=== PATIENT | female | born 1985 | race Asian ===

== ENCOUNTER 2018-04-29 14:38 | Inpatient (IN) | payer OTHER ==
[2018-04-29 14:42] VITALS: BMI 24.9
[2018-04-29] MEDS ORDERED: SODIUM CHLORIDE 1,000 ML IV STA (14:45)
--- NOTE | 2018-04-29 14:45 | PDOC ---
History of Present Illness - General Chief Complaint: Pain Stated Complaint: ABD PAIN Time Seen by Provider: 04/29/18 14:41 History Source: Patient Exam Limitations: No Limitations - History of Present Illness Initial Comments: 04/29/18 15:35 Ahira 32 YOF with h/o scoliosis presenting with progressively worsening epigastric burning pain radiating to back intermittently x 3 days, worse with eating. No other food sick contacts or precipitating food factors. Has been eating [place] food, and rice/beans. +hot urine, but no dysuria frequency or urgency. +NBNB emesis with the food, clear mucus; nonbloody loose stools. No history of EGD. no meds taken. No travel history; no tobacco or ETOH or drug use. No VB, or discharge. LMP ~1 week ago with vaginal spotting, but Uses nexplanon for control so typically irregular periods. Denies no increased NSAID or tylenol use. does take OTC paracematol occasionally x 2 days, 2 tablets for her pain, but no overdose or increased dosage. 04/29/18 17:53 Past History - Past Medical History Allergies/Adverse Reactions: Allergies Allergy/AdvReac Type Severity Reaction Status Date / Time Penicillins Allergy Verified 04/29/18 14:39 Home Medications: Ambulatory Orders Etonogestrel [Nexplanon] 68 mg SQ ASDIR 04/29/18 COPD: No Other medical history: DENIES - Suicide/Smoking/Psychosocial Hx Smoking History: Never smoked Have you smoked in the past 12 months: No Hx Alcohol Use: No Drug/Substance Use Hx: No Review of Systems - Review of Systems Able to Perform ROS?: Yes Comments:: 04/29/18 15:55 GENERAL/CONSTITUTIONAL: No fever. No weakness. + chills, sweats. HEAD, EYES, EARS, NOSE AND THROAT: No sore throat or mouth pain. No difficulty swallowing.. No congestion. CARDIOVASCULAR: No chest pain or palpitations, syncope or edema. RESPIRATORY: No SOB, cough, wheezing, or hemoptysis. GASTROINTESTINAL + abdominal pain, nausea/vomiting. No diarrhea or constipation. No bloody stools. GENITOURINARY: No hematuria, dysuria, frequency, urgency or other changes. no VB or discharge. MUSCULOSKELETAL: No joint or muscle swelling or pain. +back pain. SKIN: No rash or changes in skin color or lesions. NEUROLOGIC: No headache, vertigo, loss of consciousness, or change in strength/ sensation. No gait instability. HEMATOLOGIC/LYMPHATIC: No anemia, easy bruising/bleeding, or history of blood clots. ALLERGIC/IMMUNOLOGIC: No allergies All other systems reviewed and negative, or as documented in HPI. *Physical Exam - Vital Signs Last Vital Signs Temp Pulse Resp BP Pulse Ox 98.5 F 76 18 110/61 100 04/29/18 14:38 04/29/18 14:38 04/29/18 14:38 04/29/18 14:38 04/29/18 14:38 - Physical Exam Comments: 04/29/18 15:56 General: Well appearing, awake and alert, NAD. HEENT: NCAT, PERRL, EOMI, clear conjunctiva, anicteric, moist mucus membranes, clear oropharynx, no oral lesions.. Neck: neck supple, FROM Resp: CTAB, normal and even respirations, no respiratory distress CVS: RRR, no murmurs, 2+ peripheral pulses throughout, no peripheral edema Abdomen: soft, +epigastric tenderness, no negrete's sign. no rebound or guarding. no CVAT. Back: nontender, normal inspection and ROM MSK: no edema, ASHER x4, ROM intact. No clubbing or cyanosis. normal bulk and tone. Neuro: alert, oriented appropriately Skin: warm and well perfused, cap refill <2 sec, normal color, no jaundice. 04/29/18 17:52 ED Treatment Course - LABORATORY CBC & Chemistry Diagram: 04/29/18 16:00 04/29/18 16:00 Medical Decision Making - Medical Decision Making 04/29/18 16:04 32 YOF presenting with epigastric burning pain, n/v, loose stools x 3 days, worse with food. vitals wnl, no fever. DDx abdominal pain: GERD, PUD, esophageal spasm, pancreatitis, hepatitis, biliary obstruction, biliary colic, gallstones, choledocholithiasis, cholecystitis. constipation, colitis, gastroenteritis, cholecystitis, UTI, pyelonephritis, given pepcid, IVF, zofran, maalox PO with clinical improvement. abdomen soft and benign, +epigastric tenderness labs and lytes, LFTs elevated in 700-800s, indicating infectious vs inflammatory liver disease. coags with INR mildly elevated. hepatitis panel sent, pending results. UA neg for infection or ketones, neg preg test. RUQ/abdomen US to r/o biliary etiology/obstruction. +CBD dilation 0.7cm, no definitive stones or cholecystitis. overdistended gallbladder present. warrants MRCP/MRI abdomen as inpatient GI consultation at [facility] to Dr. Maldonado, GI consultation for transaminitis. dispo: admit for transaminitis, Abdominal pain - results above d/w patient. agree with impression and plan. no primary doctor, admit to Dr. Rizo, hospitalist. 04/29/18 18:52 *DC/Admit/Observation/Transfer Diagnosis at time of Disposition: Transaminitis, Abdominal pain - Discharge Dispostion Condition at time of disposition: Stable Decision to Admit order: Yes Decision to Admit order Date/Time: 04/29/18 17:36 Decision to Admit Order Category Date Time Status Decision to Admit to Hospital Routine Admission 04/29/18 17:35 Ordered - Referrals - Patient Instructions - Post Discharge Activity
[2018-04-29 15:20] LABS: PH,URINE 7.5 (4.5-8); URINE APPEARANCE Clear; URINE BILIRUBIN 2+ (NEGATIVE); URINE COLOR Yellow; URINE GLUCOSE (UA) Negative (NEGATIVE); URINE KETONE Trace (NEGATIVE); URINE LEUK ESTERASE Negative (NEGATIVE); URINE NITRITE Negative (NEGATIVE); URINE PROTEIN Trace (NEGATIVE)
[2018-04-29] MEDS ORDERED: ONDANSETRON 4 MG/2 ML VIAL IVPUSH ONE ×2 (15:28→18:49)
[2018-04-29] MEDS ORDERED: MAG HYDROX/AL HYDROX/SIMETH 30 ML UNIT-DOSE CUP PO ONE (15:28)
[2018-04-29] MEDS ORDERED: ACETAMINOPHEN 1000 MG/100 ML VIAL (NON FORMULARY) IVPB ONE (15:28)
[2018-04-29] MEDS ORDERED: FAMOTIDINE 20 MG/50 ML IVPB 20 MG/50 ML MG IVPB ONE ×2 (15:29→15:33)
[2018-04-29] MEDS ORDERED: MAG HYDROX/AL HYDROX/SIMETH 30 ML UNIT-DOSE CUP ONE (15:33)
[2018-04-29] MEDS ORDERED: ONDANSETRON 4 MG/2 ML VIAL ONE (15:34)
[2018-04-29] MEDS ORDERED: ACETAMINOPHEN INJECTION 100 ML IVPB ONE (15:34)
[2018-04-29 16:36] LABS: ALBUMIN 4.2 g/dl (3.5-5.0); ALK PHOS 211 U/L (32-92); ANION GAP 12 MMOL/L (8-16); BASO % 0.7 % (0-2.0); BILIRUBIN,TOTAL 2.7 mg/dl (0.2-1.0); BLOOD UREA NITROGEN 7 mg/dl (7-18); CALCIUM 9.1 mg/dl (8.4-10.2); CHLORIDE 104 mmol/L (98-107); CO2 22 mmol/L (22-28); CREATININE 0.6 mg/dl (0.6-1.3); EOS % 0.4 % (0-4.5); GLUCOSE,RANDOM 99 mg/dl (74-106); HEMATOCRIT 40.8 % (32.4-45.2); HEMOGLOBIN 13.5 GM/dl (10.7-15.3); MCH 29.3 pg (25.7-33.7); MCHC 33.1 g/dl (32.0-36.0); MEAN CELL VOLUME 88.6 fl (80-96); MEAN PLT VOLUME 9.9 fl (7.5-11.1); MONO % 4.9 % (3.8-10.2); PLATELET COUNT 215 K/MM3 (134-434); POTASSIUM 4.2 mmol/L (3.5-5.1); RDW 12.1 % (11.6-15.6); SODIUM 138 mmol/L (136-145); TOT PROT 7.6 g/dl (6.4-8.3); WHITE BLOOD COUNT 4.5 K/mm3 (4.0-10.8)
[2018-04-29 17:06] LABS: SGOT/AST 735 U/L (10-42); SGPT/ALT 895 U/L (10-40)
[2018-04-29 18:06] LABS: LIPASE 169 U/L (73-393)
[2018-04-29 18:44] LABS: INR 1.24 (0.82-1.09); PROTHROMBIN TIME (PATIENT) 13.8 SEC (10.2-13.0)
--- NOTE | 2018-04-29 20:07 | HP ---
Admitting History and Physical - Primary Care Physician PCP: Pam Rizo - Admission History of Present Illness: Ahira 32 YOF with h/o scoliosis presenting with progressively worsening epigastric burning pain radiating to back intermittently x 3 days, worse with eating. No other food sick contacts or precipitating food factors. Has been eating citizen of [place] food, and rice/beans. +hot urine, but no dysuria frequency or urgency. +NBNB emesis with the food, clear mucus; nonbloody loose stools. No history of EGD. no meds taken. No travel history; no tobacco or ETOH or drug use. No VB, or discharge. LMP ~1 week ago with vaginal spotting, but Uses nexplanon for control so typically irregular periods. Denies no increased NSAID or tylenol use. does take OTC paracematol occasionally x 2 days, 2 tablets for her pain, but no overdose or increased dosage. - Past Medical History ...LMP: 04/22/18 ...: No - Smoking History Smoking history: Never smoked Have you smoked in the past 12 months: No - Alcohol/Substance Use Hx Alcohol Use: No Home Medications - Allergies Allergies/Adverse Reactions: Allergies Allergy/AdvReac Type Severity Reaction Status Date / Time Penicillins Allergy Verified 04/29/18 14:39 - Home Medications Home Medications: Ambulatory Orders Etonogestrel [Nexplanon] 68 mg SQ ASDIR 04/29/18 Physical Examination Vital Signs: Vital Signs Temperature 99.9 F H 04/29/18 19:20 Pulse Rate 76 04/29/18 19:20 Respiratory Rate 20 04/29/18 19:20 Blood Pressure 110/62 04/29/18 19:20 O2 Sat by Pulse Oximetry (%) 100 04/29/18 14:38 Constitutional: Yes: No Distress HENT: Yes: Atraumatic Neck: Yes: Supple Cardiovascular: Yes: Regular Rate and Rhythm Respiratory: Yes: CTA Bilaterally Gastrointestinal: Yes: Normal Bowel Sounds, Tenderness (epigastric) Extremities: Yes: WNL Neurological: Yes: Alert, Oriented Labs: CBC, BMP 04/29/18 16:00 04/29/18 16:00 Problem List - Problems (1) Abdominal pain Code(s): R10.9 - UNSPECIFIED ABDOMINAL PAIN (2) Transaminitis Assessment/Plan: NPO, IVF FU LABS Code(s): R74.0 - NONSPEC ELEV OF LEVELS OF TRANSAMNS & LACTIC ACID DEHYDRGNSE (3) Acute cholecystitis Assessment/Plan: HIDA ERCP GI/SURGERY CONSULT NPO IVF Code(s): K81.0 - ACUTE CHOLECYSTITIS Assessment/Plan Laboratory Tests 04/29/18 04/29/18 04/29/18 15:00 15:00 16:00 WBC 4.5 RBC 4.60 Hgb 13.5 Hct 40.8 MCV 88.6 MCH 29.3 MCHC 33.1 RDW 12.1 Plt Count 215 MPV 9.9 Absolute Neuts (auto) 2.9 Neutrophils % 64.0 Lymphocytes % 30.0 Monocytes % 4.9 Eosinophils % 0.4 Basophils % 0.7 PT with INR INR Sodium Potassium Chloride Carbon Dioxide Anion Gap BUN Creatinine Creat Clearance w eGFR Random Glucose Calcium Total Bilirubin AST ALT Alkaline Phosphatase Total Protein Albumin Lipase Urine Color Yellow Urine Appearance Clear Urine pH 7.5 Ur Specific [place] 1.020 Urine Protein Trace Urine Glucose (UA) Negative Urine Ketones Trace Urine Blood Negative Urine Nitrite Negative Urine Bilirubin 2+ H Urine Urobilinogen 1.0 Ur Leukocyte Esterase Negative Urine HCG, Qual Negative Acetaminophen 04/29/18 04/29/18 04/29/18 16:00 18:15 18:15 WBC RBC Hgb Hct MCV MCH MCHC RDW Plt Count MPV Absolute Neuts (auto) Neutrophils % Lymphocytes % Monocytes % Eosinophils % Basophils % PT with INR 13.8 H INR 1.24 H Sodium 138 Potassium 4.2 Chloride 104 Carbon Dioxide 22 Anion Gap 12 BUN 7 Creatinine 0.6 Creat Clearance w eGFR > 60 Random Glucose 99 Calcium 9.1 Total Bilirubin 2.7 H AST 735 H ALT 895 H Alkaline Phosphatase 211 H Total Protein 7.6 Albumin 4.2 Lipase 169 Urine Color Urine Appearance Urine pH Ur Specific [place] Urine Protein Urine Glucose (UA) Urine Ketones Urine Blood Urine Nitrite Urine Bilirubin Urine Urobilinogen Ur Leukocyte Esterase Urine HCG, Qual Acetaminophen Cancelled Active Medications Generic Name Dose Route Start Last Admin Trade Name Freq PRN Reason Stop Dose Admin Hydromorphone HCl 1 mg 04/29/18 23:08 Dilaudid Injection - IVPB Q3H PRN PAIN Sodium Chloride 1,000 mls @ 75 mls/hr 04/29/18 20:30 04/29/18 23:02 Normal Saline - IV 75 mls/hr ASDIR ANITA Administration Ondansetron HCl 4 mg 04/29/18 23:07 Zofran Injection IVPB Q4H PRN NAUSEA AND/OR VOMITING
[2018-04-29] MEDS ORDERED: SODIUM CHLORIDE 1,000 ML IV SCH (20:30)
[2018-04-29] MEDS ORDERED: ONDANSETRON 4 MG/2 ML VIAL IVPB PRN (23:07)
[2018-04-29] MEDS ORDERED: HYDROmorphone HCL CARPU-JECT 1 MG/1 ML DISP.SYRIN IVPB PRN (23:08)
--- NOTE | 2018-04-30 08:18 | PN ---
Progress Note (short form) - Note Progress Note: surgery chart review. 32f with epigastric pain, markedly elevated lfts and dilated cbd on u/s Needs gi eval for ercp.
[2018-04-30 08:57] LABS: ALBUMIN 3.1 g/dl (3.5-5.0); ALK PHOS 165 U/L (32-92); ANION GAP 7 MMOL/L (8-16); BILIRUBIN,TOTAL 1.3 mg/dl (0.2-1.0); BLOOD UREA NITROGEN 7 mg/dl (7-18); CALCIUM 8.2 mg/dl (8.4-10.2); CHLORIDE 109 mmol/L (98-107); CO2 22 mmol/L (22-28); CREATININE 0.7 mg/dl (0.6-1.3); GLUCOSE,RANDOM 90 mg/dl (74-106); POTASSIUM 4.2 mmol/L (3.5-5.1); SGOT/AST 289 U/L (10-42); SODIUM 138 mmol/L (136-145); TOT PROT 5.8 g/dl (6.4-8.3)
[2018-04-30 09:24] LABS: BASO % 0.6 % (0-2.0); EOS % 2.2 % (0-4.5); HEMATOCRIT 32.9 % (32.4-45.2); HEMOGLOBIN 11.2 GM/dl (10.7-15.3); MEAN CELL VOLUME 88.2 fl (80-96); MEAN PLT VOLUME 10.7 fl (7.5-11.1); MONO % 6.7 % (3.8-10.2); NEUT % 40.5 % (42.8-82.8); PLATELET COUNT 133 K/MM3 (134-434); RBC 3.73 M/mm3 (3.60-5.2); RDW 11.6 % (11.6-15.6); WHITE BLOOD COUNT 4.4 K/mm3 (4.0-10.8)
[2018-04-30 09:28] LABS: SGPT/ALT 372 U/L (10-40)
--- NOTE | 2018-04-30 15:49 | CONS ---
DATE OF CONSULTATION: 04/30/2018 REASON FOR CONSULTATION: Abnormal liver function tests, abdominal pain. REQUESTING PHYSICIAN: The medical doctor. The patient is seen and examined on the inpatient service at [facility]. BRIEF HISTORY: This is a 32-year-old female without significant past medical history, who presents with 1 day of severe epigastric pain radiating to her back, that has since resolved. She states in the past she has had trouble eating fatty foods. She was noted to have markedly elevated liver function tests and a dilated common bile duct at 6 mm for her age but no obvious gallstones seen. She was admitted to [facility]. She was not on antibiotic, and she was subsequently sent for a HIDA scan by the medical team, which was negative. Repeat blood tests showed marked improvement of her liver function tests, nearly coming down in half since her symptoms have resolved. PAST MEDICAL HISTORY: Only significant for scoliosis. PAST SURGICAL HISTORY: Nil. SOCIAL HISTORY: Negative for alcohol. Negative for tobacco. She takes control patch. ALLERGIES: She has allergies to PENICILLIN. FAMILY HISTORY: Negative for biliary disease. REVIEW OF SYSTEMS: General: Denies fatigue or malaise. Cardiac: Denies chest pain or palpitations. Respiratory: No shortness of breath or wheeze. Gastrointestinal: As in HPI. Denies diarrhea. Denies blood in her stool. Denies dark-colored urine. Genitourinary: Denies dysuria. Musculoskeletal: Denies joint pain, joint swelling. Psychiatric: Denies anxiety, depression, or hearing voices. PHYSICAL EXAMINATION: General: This is a well-developed, well-nourished, 32-year-old female in no distress. Vital Signs: She is afebrile. Her vital signs are stable. 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 HEENT: Her head is normocephalic. Her sclerae are anicteric. Neck: Supple. Chest: Clear. Abdomen: Soft, nontender. No surgical scars. Extremities: No edema. LABORATORY DATA: On review of her laboratory, her bilirubin was elevated at 2.7 on admission. It is 1.3 today. Her AST was 735 on admission. It is 289 today. Her ALT was 895 on admission. It is 372 today. Her alkaline phosphatase was 211 on admission. It is 165 today. Her lipase is normal. Her amylase is normal. IMAGING: Review of her imaging is as stated in HPI. ASSESSMENT: This is a 32-year-old female who presents with sudden onset of epigastric pain, markedly elevated liver function tests, ultrasound showing a dilated common bile duct, negative HIDA scan. Clinically, this is choledocholithiasis with possible passed stone. It is unusual not to see stones in the gallbladder; that is likely a failure of the ultrasound that it was missed. In either event, patient would benefit at some point from cholecystectomy this admission prior to discharge once her common bile duct has been shown to be clear of stones. This can either be done through ERCP, MRCP, or rapid continued improvement in her liver function tests. She needs a gastroenterology evaluation to determine the best course of evaluating the common bile duct. Tentatively, I will make plans for possible cholecystectomy on May 02. Patient is currently non-toxic, and with a normal white blood cell count, I see no reason to give antibiotics. You could consider prophylaxis against cholangitis, but she has given no indication of current obstruction especially with the HIDA scan showing contrast flowing into her duodenum and her white count is normal without fever. Risks and benefits of surgery were explained to the patient and her in detail. These are including, but not limited to, the possibility of conversion to open, possibility of common bile duct injury, possibility of cystic duct stump leak, possibility of injury to viscera, possibility of blood loss requiring blood transfusion, possibility of future obstruction, possibility of future hernia, plus a multitude of medical risks including, but not limited to, cardiac, neurologic, pulmonary, and vascular complications, even . Patient understands these risks and is agreeable to surgery. DO STEPHEN CARPIO/[id number]
--- NOTE | 2018-04-30 16:54 | PN ---
Progress Note (short form) - Note Progress Note: Patient seen and consult dictated. 32 yo female with acute onset of abdominal pain x 3 days and admission with elevated LFTs. Sonogram does not show gallstones or dilated CBD and HIDA negative. LFTs improving and patient also clinically better. (also normal lipase) Most likely passed CBD stone but no confirmation of either stones or sludge on imaging studies. Doubt acute viral illness with elevated LFTs and GI symptoms. In view of improving LFTs, would suggest MRCP to evaluate further. No need for ERCP at present. Repeat LFTs in am and can begin on low fat diet as tolerated. Patient/ leaning towards GB surgery but want further info/confirmatory testing as above.
--- NOTE | 2018-04-30 17:18 | PN ---
Progress Note, Physician - Current Medication List Current Medications: Active Medications Hydromorphone HCl (Dilaudid Injection -) 1 mg IVPB Q3H PRN PRN Reason: PAIN Sodium Chloride (Normal Saline -) 1,000 mls @ 75 mls/hr IV ASDIR [facility] Last Admin: 04/29/18 23:02 Dose: 75 mls/hr Ondansetron HCl (Zofran Injection) 4 mg IVPB Q4H PRN PRN Reason: NAUSEA AND/OR VOMITING - Objective Vital Signs: Vital Signs Temperature 98.9 F 04/30/18 14:00 Pulse Rate 50 L 04/30/18 14:00 Respiratory Rate 16 04/30/18 14:00 Blood Pressure 105/52 04/30/18 14:00 O2 Sat by Pulse Oximetry (%) 99 04/30/18 14:00 HENT: Yes: Atraumatic Neck: Yes: Supple Cardiovascular: Yes: Regular Rate and Rhythm Respiratory: Yes: CTA Bilaterally Gastrointestinal: Yes: Normal Bowel Sounds Extremities: Yes: WNL Neurological: Yes: Alert, Oriented Labs: CBC, BMP 04/30/18 08:20 04/30/18 08:20 INR, PTT INR 1.24 (0.82-1.09) H 04/29/18 18:15 Problem List - Problems (1) Abdominal pain Code(s): R10.9 - UNSPECIFIED ABDOMINAL PAIN (2) Transaminitis Assessment/Plan: NPO, IVF FU LABS Code(s): R74.0 - NONSPEC ELEV OF LEVELS OF TRANSAMNS & LACTIC ACID DEHYDRGNSE (3) Acute cholecystitis Assessment/Plan: HIDA ERCP GI/SURGERY CONSULT NPO IVF Code(s): K81.0 - ACUTE CHOLECYSTITIS
[2018-05-01 06:29] VITALS: BP 117/70
--- NOTE | 2018-05-01 07:41 | CONS ---
DATE OF CONSULTATION: 04/30/2018 REQUESTING PHYSICIAN: Pam Rizo MD REASON FOR CONSULTATION: I was asked to evaluate this 32-year-old female admitted with abdominal pain for several days and abnormal liver chemistries. HISTORY OF PRESENT ILLNESS: The patient has been a generally healthy female with the acute onset of abdominal pain for 3 days prior to admission. The patient was admitted with levels of AST 735 and ALT 895 with an alkaline phosphatase of 211 and a bilirubin of 2.7. Repeat lab test today included a bilirubin of 1.3, AST of 289, ALT of 372, and alkaline phosphatase of 165. The patient has no prior history of hepatobiliary disease, jaundice, or hepatitis. She was well prior to the current illness. The patient did have an ultrasound of the abdomen on admission on which the gallbladder showed some mild to moderate nonspecific distension, but no obvious gallbladder wall thickening, pericholecystic fluid accumulation or gallbladder calculi. A HIDA scan was done, as well, which showed filling of the gallbladder excluding a cystic duct obstruction, and trace was seen in the small bowel of 10 to 15 minutes consistent with the lack of common bile duct obstruction. The patient currently feels well without abdominal pain. She is asking to eat. Her vital signs are stable with a temperature of 98.9. Her white count is 4.4 with a hemoglobin 11.2 and hematocrit of 32.9. PHYSICAL EXAMINATION: General: She is a well-developed, well-nourished female. Abdomen: Soft, normoactive bowel sounds, and no tenderness. Skin: There was no obvious jaundice. IMPRESSION: Patient most likely had passage of a common bile duct stone based on her clinical history and laboratory tests. However, there is no evidence of gallbladder stones on sonogram, and her HIDA scan is unremarkable. Her liver chemistries are improving suggestive of a transient common bile duct obstruction, which is now resolving. The differential diagnosis is very limited. The possibility of an acute viral illness with abnormal liver chemistries and gastrointestinal symptoms cannot be entirely excluded, but is less likely than passage of a stone. RECOMMENDATIONS: Have suggested an MRCP to evaluate the biliary tract and gallbladder further. Patient has been seen by Surgery with tentative plans for cholecystectomy later this week. Will follow. PAULETTE VILLA M.D. QUIN/[id number]
[2018-05-01 08:06] LABS: HEP.C VIRUS AB 0.1 s/co ratio (0.0-0.9)
[2018-05-01 09:35] LABS: BASO % 0.6 % (0-2.0); EOS % 2.7 % (0-4.5); HEMATOCRIT 36.1 % (32.4-45.2); HEMOGLOBIN 12.2 GM/dl (10.7-15.3); LYMPH % 41.1 % (8-40); MCH 29.8 pg (25.7-33.7); MCHC 33.8 g/dl (32.0-36.0); MEAN CELL VOLUME 88.3 fl (80-96); MEAN PLT VOLUME 9.8 fl (7.5-11.1); MONO % 6.8 % (3.8-10.2); NEUT % 48.8 % (42.8-82.8); PLATELET COUNT 190 K/MM3 (134-434); RBC 4.09 M/mm3 (3.60-5.2); RDW 11.8 % (11.6-15.6); WHITE BLOOD COUNT 4.8 K/mm3 (4.0-10.8)
[2018-05-01 09:54] LABS: ANION GAP 9 MMOL/L (8-16); BLOOD UREA NITROGEN 6 mg/dl (7-18); CALCIUM 8.7 mg/dl (8.4-10.2); CHLORIDE 106 mmol/L (98-107); CO2 23 mmol/L (22-28); CREATININE 0.7 mg/dl (0.6-1.3); GLUCOSE,RANDOM 86 mg/dl (74-106); SODIUM 138 mmol/L (136-145)
[2018-05-01 11:38] VITALS: PULSE 76; TEMP 98.6
--- NOTE | 2018-05-01 15:15 | PN ---
Progress Note, Physician - Current Medication List Current Medications: Active Medications Hydromorphone HCl (Dilaudid Injection -) 1 mg IVPB Q3H PRN PRN Reason: PAIN Sodium Chloride (Normal Saline -) 1,000 mls @ 75 mls/hr IV ASDIR [facility] Last Admin: 04/29/18 23:02 Dose: 75 mls/hr Ondansetron HCl (Zofran Injection) 4 mg IVPB Q4H PRN PRN Reason: NAUSEA AND/OR VOMITING - Objective Vital Signs: Vital Signs Temperature 98.6 F 05/01/18 10:00 Pulse Rate 76 05/01/18 10:00 Respiratory Rate 16 05/01/18 10:00 Blood Pressure 117/70 05/01/18 10:00 O2 Sat by Pulse Oximetry (%) 98 05/01/18 10:00 Constitutional: Yes: No Distress HENT: Yes: Atraumatic Neck: Yes: Supple Cardiovascular: Yes: Regular Rate and Rhythm Respiratory: Yes: CTA Bilaterally Gastrointestinal: Yes: Normal Bowel Sounds Extremities: Yes: WNL Neurological: Yes: Alert, Oriented Labs: CBC, BMP 05/01/18 09:21 05/01/18 09:21 INR, PTT INR 1.24 (0.82-1.09) H 04/29/18 18:15 Problem List - Problems (1) Abdominal pain Code(s): R10.9 - UNSPECIFIED ABDOMINAL PAIN (2) Transaminitis Code(s): R74.0 - NONSPEC ELEV OF LEVELS OF TRANSAMNS & LACTIC ACID DEHYDRGNSE (3) Acute cholecystitis Code(s): K81.0 - ACUTE CHOLECYSTITIS
--- NOTE | 2018-05-01 16:26 | DS ---
Physical Examination Vital Signs: Vital Signs Temperature 98.6 F 05/01/18 10:00 Pulse Rate 76 05/01/18 10:00 Respiratory Rate 16 05/01/18 10:00 Blood Pressure 117/70 05/01/18 10:00 O2 Sat by Pulse Oximetry (%) 98 05/01/18 10:00 Constitutional: Yes: No Distress HENT: Yes: Atraumatic Neck: Yes: Supple Cardiovascular: Yes: Regular Rate and Rhythm Respiratory: Yes: CTA Bilaterally Gastrointestinal: Yes: Normal Bowel Sounds Extremities: Yes: WNL Neurological: Yes: Alert, Oriented Labs: CBC, BMP 05/01/18 09:21 05/01/18 09:21 Discharge Summary Reason For Visit: ELEVATED TRANSAMINASE MEASUREMENT Current Active Problems Abdominal pain (Acute) Acute cholecystitis (Acute) Transaminitis (Acute) Condition: Stable - Instructions Referrals: Pam Rizo MD [Staff Physician] - Eddi Maldonado MD [Staff Physician] - Disposition: HOME - Home Medications Comprehensive Discharge Medication List: Ambulatory Orders Etonogestrel [Nexplanon] 68 mg SQ ASDIR 04/29/18 tolerating regular home made food brought in by her dc home fu gi and surgery as out patient lfts trending down
[2018-05-01 16:42] LABS: ALBUMIN 3.7 g/dl (3.5-5.0); ALK PHOS 174 U/L (32-92); BILIRUBIN,DIRECT 0.2 mg/dL (0.0-0.3); BILIRUBIN,TOTAL 1.3 mg/dl (0.2-1.0); SGOT/AST 136 U/L (10-42); SGPT/ALT 399 U/L (10-40); TOT PROT 6.6 g/dl (6.4-8.3)
--- NOTE | 2018-05-03 13:12 | PN ---
Progress Note (short form) - Note Progress Note: surgery mrcp noted to have cbd smaller. pt was aymptomatic and declined surgery. My opinion is that this was a biliary event and pt is at risk of future complications including cholangitis, choledocholithaisis, and pancreatitis. Surgery was cancelled yesterday and patient was discharged.
== END 2018-05-01 17:33 | disposition home or self-care (01) ==
LOC: FER 14:38 → FM/S 17:35
PROVIDERS: ADMIT Internal Medicine; ATTEND Internal Medicine
DX: K81.0 Acute cholecystitis (principal); R74.0 Nonspecific elevation of levels of transaminase and lactic acid dehydrogenase [LDH]
CPT/HCPCS: 36415; 74181-TC; 76705-TC; 78226-TC; 80048; 80053; 80074; 80076; 80307; 81003; 82150; 82550; 83690; 84703; 85025; 85610; 99285-25; A9537; J0131; J7030